=== PATIENT | male | born 1990 | race Caucasian/White ===

== ENCOUNTER 2019-08-28 20:45 | Emergency (ER) | payer SELFPAY ==
--- NOTE | ~2019-08-28 | CT_ITS ---
EXAMINATION: CT brain wo con EXAM DATE: 08/28/2019 21:24 INDICATION: Altered mental status. TECHNIQUE: Spiral CT of the head was performed without contrast. Axial, coronal and sagittal images were reviewed. The dose-length product (DLP) for this examination was 681.00 mGy-cm. The exposure w as tailored according to patient size, and iterative reconstruction (ASIR) was used as additional dos e reduction technique. There is no prior study for comparison. FINDINGS: There is no acute intraparenchymal hemorrhage. No evidence of intraparenchymal brain mass lesion. No evidence of acute infarction. There is no mass effect or midline shift. The ventricles are normal in size. There are no extra-axial collections. There are no acute calvarial fractures. S mall to moderate-sized right maxillary sinus mucous retention cyst. Soft tissue is unremarkable. The visualized sinuses and mastoid air cells are well aerated. IMPRESSION: 1. Normal head CT examination. Reviewed, dictated and finalized at location A.
--- NOTE | ~2019-08-28 | XR_ITS ---
EXAMINATION: XR chest 1V EXAM DATE: 08/28/2019 21:29 INDICATION: Transient alteration of awareness. TECHNIQUE: Portable AP frontal chest x-ray was obtained. There is no prior study for comparison. FINDINGS: Congenital azygous fissure. The lungs are clear. There are no pleural effusions. Cardiome diastinal silhouette is normal. There is no pneumothorax suspected. The bones and soft tissues are unremarkable. IMPRESSION: No acute cardiopulmonary findings. Reviewed, dictated and finalized at location A.
[2019-08-28 20:48] VITALS: BP 138/81; PULSE 113; RESP 19; TEMP 37.2; O2SAT 100
--- NOTE | 2019-08-28 20:52 | ECG_ITS ---
Measurements Intervals [place] Rate: 99 P: 25 ND: 136 QRS: 7 QRSD: 97 T: 22 QT: 364 QTc: 467 Interpretive Statements SINUS RHYTHM POSSIBLE LEFT ATRIAL ENLARGEMENT BORDERLINE T WAVE ABNORMALITY- INFERIOR LEADS BORDERLINE ECG Electronically Signed On 08-29-2019 6:58:20 CDT by Niall Owen D.O.
[2019-08-28 21:05] VITALS: RESP 25
--- NOTE | 2019-08-28 21:10 | ED.AMS ---
HPI - Altered Mental Status General Chief Complaint: Altered Mental Status Stated Complaint: ate weed gummy Time Seen by Provider: 08/28/19 20:59 Source: RN notes reviewed History of Present Illness HPI narrative: Patient presents emergency department from home for her mental status history is per the patient's friend is present. States approximately 2 hours the patient ate a edible gummy bear with THC states the patient never does drugs and never takes edibles or smokes marijuana and this was this first time. States the patient had a stressful day at work. Since that time the patient has been staring off he will nod yes or no but has been altered. Per friend the patient did not drink any alcohol and has no other medical problems Related Data Home Medications Medication Instructions Recorded Confirmed No Home Medications 08/28/19 08/28/19 Allergies Allergy/AdvReac Type Severity Reaction Status Date / Time No Known Allergies Allergy Verified 08/28/19 20:59 Review of Systems Review of Systems: ROS unobtainable: Yes unobtainable due to medical condition PMFSH Past Medical History Medical History (Updated 08/28/19 @ 21:11 by Eloy Mathews DO) Patient denies significant medical history Social History Social History (Updated 08/28/19 @ 21:11 by Eloy Mathews DO) Smoking status: Never smoker Alcohol intake: never Substance use type: marijuana Gender identity (if verbalized by the patient): Male Exam Narrative: Exam Narrative: APPEARANCE: No acute distress, nontoxic, resting in bed EYES: PERRL HEENT: Normocephalic, atraumatic, OMM RESPIRATORY: No respiratory distress Clear to auscultation bilaterally with no rhonchi wheezing or rales. CARDIOVASCULAR: Regular rate and rhythm without murmurs rubs or gallops. ABDOMINAL: Soft, nontender, nondistended, no rebound or guarding MUSCULOSKELETAl: Moves all extremities. No clubbing, cyanosis or edema. NEURO: Awake and awake and looking around in bed and follows minimal commands will nod yes to minimal questions SKIN:: Warm, dry. No rashes lesions or abrasions PSYCHIATRIC: Normal affect/mood, Course Course Emergency Course: Patient is now awake and alert x3 able to get up and ambulate without any difficulty states he is ready for discharge. States he took a gummy tonight Discussed with patient results of workup and diagnosis. Discussed need for follow-up with primary care, proper use of medication, and reasons to return to the emergency department. Patient understands and agrees to current treatment plan Vital Signs Vital signs: Vital Signs Temperature 98.9 F 08/28/19 20:48 Pulse Rate 113 H 08/28/19 20:48 Respiratory Rate 19 08/28/19 20:48 Blood Pressure 138/81 08/28/19 20:48 Pulse Oximetry 100 08/28/19 20:48 Temperature 98.9 F 08/28/19 20:48 Pulse Rate 83 08/28/19 22:45 Respiratory Rate 15 08/28/19 22:45 Blood Pressure 141/64 H 08/28/19 22:45 Pulse Oximetry 100 08/28/19 22:45 MDM - Altered Mental Status Lab Data Result diagrams: 08/28/19 21:29 08/28/19 21:29 Labs: Lab Results 08/28/19 08/28/19 08/28/19 Range/Units 21:29 21:29 21:29 WBC 10.7 H (4.5-10.0) K/mm3 RBC 4.93 (4.6-6.20) M/mm3 Hgb 15.6 (14.0-18.0) g/dL Hct 43.8 (42.0-52.0) % MCV 88.8 (80-100) fl MCH 31.6 (26-34) pg MCHC 35.6 (32-36) g/dl RDW 12.4 (11.5-14.5) % Plt Count 263 (150-375) k/mm3 MPV 11.0 H (7.4-10.4) fl Immature Gran % (Auto) 0.4 (0-0.5) % Neut % (Auto) 46.6 (45.5-73.1) % Lymph % (Auto) 43.9 (18.3-44.2) % Loup % (Auto) 7.1 (2.6-8.5) % Eos % (Auto) 1.5 (0-4.4) % Baso % (Auto) 0.5 (0.2-1.2) % Lymph # (Auto) 4.72 H (0.9-3.2) K/mm3 Loup # (Auto) 0.8 H (0.1-0.6) K/mm3 Eos # (Auto) 0.2 (0-0.3) K/mm3 Baso # (Auto) 0.1 (0.0-0.1) K/mm3 Abs Immat Gran (auto) 0.04 H (0.00-0.031) K/mm3 Absolute Neuts (au
[2019-08-28 21:35] LABS: Basophils Absolute Auto 0.1 K/mm3 (0.0-0.1); Basophils Percent Auto 0.5 % (0.2-1.2); Eosinophils Absolute Auto 0.2 K/mm3 (0-0.3); Eosinophils Percent Auto 1.5 % (0-4.4); Hematocrit 43.8 % (42.0-52.0); Hemoglobin 15.6 g/dL (14.0-18.0); Immature Granulocyte Absolute 0.04 K/mm3 (0.00-0.031); Immature Granulocyte Percent A 0.4 % (0-0.5); Lymphocytes Absolute Auto 4.72 K/mm3 (0.9-3.2); Lymphocytes Percent Auto 43.9 % (18.3-44.2); Mean Corpuscular HGB Conc 35.6 g/dl (32-36); Mean Corpuscular Hemoglobin 31.6 pg (26-34); Mean Corpuscular Volume 88.8 fl (80-100); Monocytes Absolute Auto 0.8 K/mm3 (0.1-0.6); Monocytes Percent Auto 7.1 % (2.6-8.5); Neutrophils Percent Auto 46.6 % (45.5-73.1); Platelet Count Result 263 k/mm3 (150-375); Red Blood Count 4.93 M/mm3 (4.6-6.20); Red Cell Distribution Width 12.4 % (11.5-14.5); White Blood Count 10.7 K/mm3 (4.5-10.0)
[2019-08-28] MEDS: SODIUM CHLORIDE 0.9% IV 1,000 ML 999 ML IV CONT (21:43)
[2019-08-28 21:44] VITALS: BP 127/52; PULSE 90; RESP 20; O2SAT 98
[2019-08-28 21:46] LABS: Ethanol < 10 mg/dL (<10)
[2019-08-28 21:49] LABS: Alanine Aminotransferase 37 U/L (4-50); Albumin Level 4.6 g/dL (3.5-5.1); Alkaline Phosphatase 27 U/L (38-126); Aspartate Amino Transferase 40 U/L (17-59); Bilirubin,Total 0.6 mg/dL (0.2-1.3); Blood Urea Nitrogen 18 mg/dL (9-20); Calcium 8.8 mg/dL (8.4-10.2); Carbon Dioxide 25 mmol/L (22-30); Chloride 104 mmol/L (98-107); Estimated Glomerular Filt Rate > 60; Glucose 169 mg/dL (75-110); Potassium 3.1 mmol/L (3.4-5.0); Sodium 138 mmol/L (137-145)
[2019-08-28 22:45] VITALS: BP 141/64; PULSE 83; RESP 15; O2SAT 100
[2019-08-28 22:55] LABS: Add Urine Microscopic? YES; Appearance Urine Cloudy (Clear); Bilirubin Urine Negative (Negative); Blood Urine Negative (Negative); Color Urine Yellow (Yellow); Glucose Urine UA Negative (Negative); Ketones Urine Trace mg/dL (Negative); Leukocyte Esterase Ur Negative LEU/UL (Negative); Mucus Urine Moderate /lpf; Nitrate Urine Negative (Negative); Protein Urine 1+ mg/dL (Negative); WBC Urine 0-3 /hpf
[2019-08-28 22:56] LABS: Specific Grav Ur 1.032 (1.001-1.035)
[2019-08-28 23:06] LABS: Amphetamine Screen Urine Negative (Negative); Barbiturate Screen Urine Negative (Negative); Benzodiazepines Screen Urine Negative (Negative); Cannabinoid Screen Urine Positive (Negative); Cocaine Screen Urine Negative (Negative); Methadone Screen Urine Negative (Negative); Opiate Screen Urine Negative (Negative); Phencyclidine Screen Urine Negative (Negative)
--- NOTE | 2019-08-28 23:36 | PC.NURSE ---
pt walked around department per Dr Mathews request to see if pt was steady on his feet
[2019-08-28 23:46] VITALS: BP 141/84; PULSE 95; RESP 19; O2SAT 98
== END 2019-08-28 23:48 | disposition home or self-care (01) ==
PROVIDERS: Emergency Provider Emergency Medicine
DX: F12.90 Cannabis use, unspecified, uncomplicated (principal); R94.31 Abnormal electrocardiogram [ECG] [EKG]
CPT/HCPCS: 36415; 70450; 71045; 80053; 80307; 81001; 85025; 93005; 96360; 99284; J7030

== ENCOUNTER 2022-10-18 10:43 | Emergency (ER) | payer SELFPAY ==
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
[2022-10-18 10:52] VITALS: BP 149/71; PULSE 71; RESP 18; TEMP 36.1; O2SAT 100
[2022-10-18] MEDS: KETOROLAC 30 MG/ML VIAL (*BKC) IM (11:54)
[2022-10-18] MEDS: CYCLOBENZAPRINE HCL 10 MG TABLET PO (11:54)
[2022-10-18] MEDS: HYDROcodone/acetaminophen (*CRX) 5-325 MG TABLET 1 TAB PO (11:54)
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
== END 2022-10-18 13:44 | disposition home or self-care (01) ==
PROVIDERS: Emergency Provider Nurse Practitioner Family; PCP Family Medicine
DX: S39.012A Strain of muscle, fascia and tendon of lower back, initial encounter (principal); V89.2XXA Person injured in unspecified motor-vehicle accident, traffic, initial encounter
CPT/HCPCS: 72128; 72131; 96372; 99284; A9270; J1885

== ENCOUNTER 2023-12-29 09:47 | Outpatient (CLI) | payer OTHER, SELFPAY ==
[2023-12-29 10:36] LABS: Basophils Absolute Auto 0.1 K/mm3 (0.0-0.1); Basophils Percent Auto 0.9 % (0.2-1.2); Eosinophils Absolute Auto 0.1 K/mm3 (0-0.3); Eosinophils Percent Auto 1.2 % (0-4.4); Hematocrit 45.5 % (42.0-52.0); Hemoglobin 15.8 g/dL (14.0-18.0); Immature Granulocyte Absolute 0.03 K/mm3 (0.00-0.031); Immature Granulocyte Percent A 0.4 % (0-0.5); Lymphocytes Absolute Auto 1.82 K/mm3 (0.9-3.2); Mean Corpuscular HGB Conc 34.7 g/dl (32-36); Mean Corpuscular Hemoglobin 31.7 pg (26-34); Mean Corpuscular Volume 91.4 fl (80-100); Mean Platelet Volume 10.4 fl (7.4-10.4); Monocytes Absolute Auto 0.6 K/mm3 (0.1-0.6); Monocytes Percent Auto 8.4 % (2.6-8.5); Neutrophils Absolute Auto 4.2 K/mm3 (1.3-6.7); Neutrophils Percent Auto 62.1 % (45.5-73.1); Platelet Count Result 261 k/mm3 (150-375); Red Blood Count 4.98 M/mm3 (4.6-6.20); Red Cell Distribution Width 12.4 % (11.5-14.5); White Blood Count 6.8 K/mm3 (4.5-10.0)
[2023-12-29 10:49] LABS: Alanine Aminotransferase 145 U/L (6-50); Albumin Level 4.5 g/dL (3.5-5.1); Alkaline Phosphatase 27 U/L (38-126); Anion Gap 7 mmol/L (4-12); Aspartate Amino Transferase 164 U/L (17-59); Bilirubin,Total 0.7 mg/dL (0.2-1.3); Blood Urea Nitrogen 15 mg/dL (9-20); Calcium 8.9 mg/dL (8.4-10.2); Carbon Dioxide 29 mmol/L (22-30); Chloride 102 mmol/L (98-107); Cholesterol 157 mg/dL (0-200); Estimated Glomerular Filt Rate > 60; Glucose 90 mg/dL (65-110); HDL Direct 35 mg/dL; Potassium 3.6 mmol/L (3.4-5.0); Sodium 138 mmol/L (137-145); Triglycerides 79 mg/dL (<150)
[2023-12-29 11:00] LABS: LDL Cholesterol Direct 93 mg/dL
[2023-12-29 11:26] LABS: HIV 1/2 Ab P24 Ag Result Negative (Negative)
[2023-12-29 11:45] LABS: Trichomonas Vag PCR NOT DETECTED (NOT DETECTE)
[2023-12-29 12:09] LABS: Chlamydia trachomatis NOT DETECTED (NOT DETECTE); Neisseria gonorrhoeae PCR NOT DETECTED (NOT DETECTE)
[2023-12-29 12:10] LABS: Hepatitis C Virus Antibody Negative (Negative)
[2023-12-29 14:24] LABS: Rapid Plasma Reagin Non-Reactive (NonReactive)
[2023-12-29 14:47] LABS: Hepatitis B Surface Antigen Negative (Negative)
[2023-12-29 14:53] LABS: HAV RESULT Negative (Negative); Hepatitis B Core IgM Result Negative (Negative)
[2023-12-29 15:04] LABS: Hepatitis C Virus Antibody Negative (Negative)
[2024-01-05 10:22] LABS: Reference Lab Test Name Mycoplasma genitaliu
[2024-01-05 10:23] LABS: Reference Lab Test Result Not Detected
== END 2023-12-29 09:48 | disposition home or self-care (01) ==
PROVIDERS: PCP Family Medicine; Visit Provider Student in an Organized Health Care Education/Training Program
DX: Z00.00 Encounter for general adult medical examination without abnormal findings (principal); Z20.6 Contact with and (suspected) exposure to human immunodeficiency virus [HIV]; Z72.51 High risk heterosexual behavior; R79.89 Other specified abnormal findings of blood chemistry
CPT/HCPCS: 36415; 80053; 80061; 80074; 84443; 85025; 86038; 86039; 86592; 86695; 86696; 86703; 86803; 87491; 87591; 87661; G0432